=== PATIENT | female | born 1955 | race Caucasian/White ===

== ENCOUNTER → 2016-08-06 | Outpatient (CLI) | payer OTHER ==
[~2016-08-06] MED LIST: ADVIN10/60 INH; ADVIN25/60 INH; ASCO1CHW PO; BUSP1TAB46 PO; CHOL2000 PO; CITA20TA9 PO; CITA40TA12 PO; CLON0.5T3 PO; CLR10 PO; FLUT0.15 NAE; IPRASOL4 INH; MIRT15TA2 PO; OXYC-106 PO; OXYC1TAB3 PO; PRLSR20 PO; PSEU120T21 PO; SPRIN/30 INH; TEMA7.5C13 PO; THIO1CAP PO; UMEC1INH INH; VNTHFA/IN INH
--- NOTE | 2016-08-07 05:32 | PAP/PSG TECHNICIAN REPORT ---
[facility] Acid Washer Operator Polysomnogram Report Study name: None Report date: 08/07/2016 Study date: 08/06/2016 Referring Physician: CECILIA DUMAS PA-C Name: MALLY QUINTERO Interpreting Physician: Jack Reagan M.D. Date of : 1955 Acid Washer Operator: Donovan Clemente RPSGT. Sex: Female Age: 61 StudyType: PSG Weight: 228 lbs 45 cm Height: 61 years, Height 5' 3" Neck Circum: BMI: 40.38 Medications: MIRTAZAPINE 15 MG, BUSPIRONE HCL 7.5 MG, PRILOSEC 20 MG, CELEXA 40 MG, PROAIR HFA 108 (90 BASE) Patient History PATIENT HAS HISTORY OF INSOMNIA, SNORING AND WITNESSED APNEAS. ALSO HAS HISTORY OF DEPRESSION AND DAYTIME FATIGUE. SHE IS HERE FOR A NPSG ONLY TO [place] FOR BECCA. ESS = 7 RM 7 Parameters Monitored NPSG: E1-M2, E2-M1, Fp1-M2, Fp2-M1, F3-M2, F4-M2, F4-M1, C3-M2, C4-M2, C4-M1, O1-M2, O2-M2, O2-M1, T3-M2, T4-M1, P3-M2, P4-M1, CHIN1, CHIN2, HR, EKG, Legs, PFLOW, SNOR, FLOW, CFLOW, Tidal Volume, THOR, ABDO, SpO2, PLTH, CPRESS, ETCO2 Wave, ETCO2, pH Sleep Architecture Sleep Stages Time at Lights Off 8:57:16 PM STAGES Time (min.) TST (%) Time at Lights On 5:23:46 AM Wake 144.0 -- Total Recording Time (TRT) 507.00 min. N1 32.5 9 Total Sleep Period (TSP) 419.0 min. N2 146.0 40 Total Sleep Time (TST) 362.5min. N3 116.0 32 Awake Time 144.0 min. REM 68.0 19 Wake after Sleep Onset 56.5 min. Sleep Efficiency (SE) 72 % Sleep Onset Latency (JONH) 87.5 min. Number of Stage 1 Shifts None Awakenings 35 Stage Changes 156 Number of REM periods 35 REM 68.0 19 REM Latency 82.5 min. NREM 294.5 81 Body Position Analysis Supine Right Left Side Prone Vertical Total Sleep Time (min.) 341.0 9.5 125.0 134.53 0.0 0.0 Total Sleep Time (%) 63% 3% 34% 37 0% N/A% Total Sleep Time REM (min.) 38.0 0.0 30.0 None 0.0 0.0 Total Sleep Time NREM (min.) 190.0 9.5 95.0 None 0.0 0.0 Intermittent Wake (min.) 113.0 6.6 24.4 None 0.0 0.0 Total Sleep Period (%) 62% None None None None None Arousals Myoclonus (PLM) * Events Count Index Events Count Index Spontaneous 23 4 Events Awake (PLMW) 103 42.9 Respiratory 82 13.9 Events Asleep w/ Arousal (PLMA) 3 0.5 PLM 3 0 Events Asleep w/o Arousal (PLMS) 115 19.0 Snoring 27 4 Total Asleep 118 19.5 Total 135 22 Total 221 26 Respiratory Analysis * CA OA MA CH H RERA Total Count 0 26 0 0 166 1 192 Index 0.0 4.3 0.0 0 27.5 0 31.9 Mean Duration 0.0 34.6 0.0 0.00 22.6 14.3 24.1 Longest Duration 0.0 53.5 0.0 0.00 0.0 14.3 59.8 Respiratory Event Summary Total Supine ~Supine Right Left Prone REM NREM Apneas Count 26 15 11 0 11 N/A 21 5 Index 4.3 4 5 0.0 5.3 N/A 19 1 Hypopneas (4% Desat) Count 166 96 70 11 59 N/A 33 133 Index 27.5 25.3 31 69.5 28.3 N/A 29.1 27.1 Apneas & All Hypopneas Count 192 111 81 11 70 N/A 54 138 Index 31.8 29 36 69 34 N/A 47.6 28.1 Respiratory Events (Dressage Instructor+All Hyp+RERA) Count 192 112 81 11 70 N/A 54 138 Index 31.9 29 36 69.5 33.6 N/A 47.6 28.3 Respiratory Related Arousal Count 82 112 41 1 40 N/A 39 45 Index 13.9 11 18 6 19 N/A 34 9 Snoring Analysis Supine Right Left Prone REM NREM Total Snore duration 100.5 min Snores count 2,975 48 679 N/A 364 3,338 3,702 Snore mean duration 1.6 Sec Snores index 783 303 326 N/A 321.2 680.1 612.7 TST with snoring (%) 27.7% Desaturation Event Summary: Minimum %SpO2 Event Count Mean/Min/Max Duration(sec.) Desaturation Index % Time In Bed > 90 120 28.7 / 6.0 / 81.7 136.4 10.7 86 - 90 173 29.9 / 0.2 / 90.0 40.4 52.2 81 - 85 12 38.5 / 5.3 / 71.2 5.2 28.3 76 - 80 2 46.7 / 35.5 / 57.9 6.5 3.8 71 - 75 0 N/A 0.0 2.7 66 - 70 1 4.3 / 4.3 / 4.3 8.5 1.4 61 - 65 1 4.3 / 4.3 / 4.3 23.8 0.5 56 - 60 0 N/A 0.0 0.2 51 - 55 0 N/A 0.0 0.1 < 50 0 N/A 0.0 0.0 Total REM NREM Awake <50% 0.0 min. 0.0 min. 0.0 min. 0.0 min. 51 - 60% 1.3 min. 0.8 min. 0.0 min. 0.4 min. 61 - 70% 9.6 min. 5.5 min. 1.5 min. 2.7 min. 71 - 80% 31.9 min. 20.7 min. 5.7 min. 5.5 min. 81 - 90% 395.8 min. 34.8 min. 270.6 min. 90.4 min. 91 - 100% 52.8 min. 6.3 min. 16.7 min. 29.9 min. Average 86 81 86 88 Minimum SpO2 50 50 60 55 Desaturation Event Index 28.2 52.9 30.2 13.3 # Desat. Events below 89% 231 58 146 27 Time(%) with Saturation below 89% 67.9 11.1 48.0 8.8 Time(min.) with Saturation below 89% 333.4 54.4 235.8 43.3 Time (mins) REM (mins) NREM (mins) % of TST SpO2 Below 90% 207 59 N148 88.3 SpO2 Below 88% 105 0 0 70 Heart Rate Analysis Min (bpm) Max (bpm) Average (bpm) Awake 51 104 84 NREM 56 100 75 REM 49 103 72 Overall 49 103 75 Supplemental O2 Values Minimum O2 level: None Value Start Time End Time Acid Washer Operator Comments Ms. Quintero slept in the right, left and supine positions. PAC's noted. Leg movements noted. No bruxism noted. Snoring was noted and scored as a 5 on a scale of 1 through 5. (0=no snoring, 5=snoring loud enough to be heard through a closed door or down the [address] way) Ms. Quintero awoke to use the restroom 3 times during the night. Ms. Quintero stated I slept as well as I do when I am in my own bed. The final report will be interpreted and signed by a sleep physician. The completed physician report will then be placed in the patient medical record. Therapy (cm H2O) 0 TIB (min.) 506.5 TST (min.) 362.5 Sleep Onset (min.) 87.5 REM Onset From Sleep (min.) 82.5 Sleep Efficiency % 72 Wakefulness (%) 28 Wakefulness (min.) 144.0 NREM 1 (%) 9 NREM 1 (min.) 32.5 NREM 2 (%) 40 NREM 2 (min.) 146.0 NREM 3 (%) 32 NREM 3 (min.) 116.0 REM (%) 19 REM (min.) 68.0 # Arousals 135 Arousal Index 22 # Snore 3,702 Snore Index 612.7 AHI 31.8 AHI Supine 29 AHI Non-Supine 36 NREM AHI 28.1 REM AHI 47.6 RDI 31.9 # Obstructive Apnea 26 # Central Apnea 0 # Mixed Apnea 0 # Hypopneas 166 RERAs 1 Total Respiratory Events 201 Time Below SpO2 89% (min.) 290.2 Mean NREM SpO2 (%) 86 Mean REM SpO2 (%) 81 Mean Sleep SpO2 (%) 85 Min NREM SpO2 (%) 60 Min REM SpO2 (%) 50 Position Supine (min.) 341.0 Position Non-supine (min.) 134.5 LM Index Sleep 19.5 LM Index NREM 16.5 LM Index REM 32.6 Mean Heart Rate (bpm) 75 Min Heart Rate (bpm) 49
--- NOTE | 2016-08-08 19:19 | POLYSOMNOGRAPH REPORT ---
CLINICAL DATA: A 61-year-old female with BMI of 40.4 referred by SUZI Nguyen with a history of insomnia, snoring and witnessed apnea; depression, and daytime fatigue. Her [place] Sleepiness score is 7/24. SLEEP ARCHITECTURE: Total sleep period was 419 minutes. Total sleep time was 362.5 minutes divided between 294.5 minutes of non-REM sleep and 68 minutes of REM sleep. Sleep onset latency was delayed at 87.5 minutes. REM latency was 82.5 minutes. Sleep efficiency was 70%. Wake after sleep onset was 56.5 minutes. Sleep consisted of stage N1 9%, N2 40%, N3% 32%, and REM 19%. AROUSAL DATA: 135 arousals were recorded for an index of 22 per hour. 82 were due to respiratory events. PERIODIC LIMB MOVEMENTS DATA: 108 limb movements during sleep were noted for an index of 19.5 with arousal index of 0.5 per hour. RESPIRATORY DATA: Severe sleep apnea was documented. The AHI was 31.8. There were 26 obstructive apneic episodes. The longest duration of apnea was 53.5 seconds. There were 166 hypopneic episodes. The mean duration of hypopnea was 22.6 seconds. OXIMETRY DATA: Nocturnal hypoxemia was seen. The oxygen savanah was 50% during REM. The mean saturation was 86%. ELECTROCARDIOGRAM: Heart ranged from 56-103 beats per minute. PACs were noted. WORD PROCESSOR'S COMMENTS: The patient slept in the right, left, and supine positions. Snoring was severe, rated 5 on a scale of 1-5. IMPRESSION: Severe sleep apnea/hypopnea with an apnea-hypopnea index of 31.8 with severe nocturnal hypoxemia with an oxygen savanah of 50% during REM sleep. RECOMMENDATIONS: The patient would benefit from a repeat sleep study with CPAP. [facility]
--- NOTE | 2016-08-11 10:12 | CODING QUERY MEDICAL NECESSITY ---
SUPPORTING DIAGNOSIS NEEDED A supporting diagnosis is required for the test/procedure performed on this patient in order for us to be reimbursed by the patient's insurance. Please provide a supporting diagnosis for the following test/procedure listed below next to the test name along with your signature. *If there is no additional diagnosis for this patient that would support the following test/procedure please document that below next to the test/procedure. Test(s)/Procedure(s) that require a supporting diagnosis: * SLEEP STUDY DIAGNOSIS: * DOS: 08/06/16 Provider Signature: Date: Thank you Leigh [facility] Information Management Once completed, please kindly fax back to [phone] For questions please call [phone]
== END | disposition home or self-care (01) ==
LOC: C.NEUR 20:00
PROVIDERS: ATTEND Physician Assistant
DX: R06.83 Snoring (principal); G47.00 Insomnia, unspecified; J44.9 Chronic obstructive pulmonary disease, unspecified; I10 Essential (primary) hypertension; E66.9 Obesity, unspecified

== ENCOUNTER → 2016-10-29 | Outpatient (CLI) | payer OTHER ==
--- NOTE | 2016-10-30 05:39 | PAP/PSG TECHNICIAN REPORT ---
[facility] Supervisor Propellant Charge Loading Polysomnogram Report Study name: None Report date: 10/30/2016 Study date: 10/29/2016 Referring Physician: CECILIA DUMAS PA-C Name: MALLY QUINTERO Interpreting Physician: Jack Reagan M.D. Date of : 1955 Supervisor Propellant Charge Loading: Donovan Clemente RPSGT. Sex: Female Age: 61 StudyType: PSG PAP Weight: 236 lbs Height: 61 years, Height 5' 3" BMI: 41.8 Medications: PREDNISONE 20 MG, AZITHROMYCIN 250 MG, ACETAMINOPHEN 500 MG, MIRTAZAPINE 15 MG, BUSPIRONE HCL 7.5 MG, PRILOSEC 20 MG, CELEXA 40 MG, ADVAIR DISKUS, PROAIR HFA 108 90 BASE Patient History PATIENT HAD A SLEEP STUDY DONE IN AUGUST OF 2016. SHE WAS POSITIVE FOR BECCA WITH AN AHI OF 31.8/HR. SHE IS HERE TODAY FOR A CPAP TITRATION. RM 7 Parameters Monitored NPSG: E1-M2, E2-M1, Fp1-M2, Fp2-M1, F3-M2, F4-M2, F4-M1, C3-M2, C4-M2, C4-M1, O1-M2, O2-M2, O2-M1, T3-M2, T4-M1, P3-M2, P4-M1, CHIN1, CHIN2, HR, EKG, Legs, PFLOW, SNOR, FLOW, CFLOW, Tidal Volume, THOR, ABDO, SpO2, PLTH, CPRESS, ETCO2 Wave, ETCO2, pH Sleep Architecture Sleep Stages Time at Lights Off 9:18:29 PM STAGES Time (min.) TST (%) Time at Lights On 5:27:59 AM Wake 35.0 -- Total Recording Time (TRT) 490.00 min. N1 9.5 2 Total Sleep Period (TSP) 459.5 min. N2 198.5 44 Total Sleep Time (TST) 454.5min. N3 52.5 12 Awake Time 35.0 min. REM 194.0 43 Wake after Sleep Onset 5.0 min. Sleep Efficiency (SE) 93 % Sleep Onset Latency (JONH) 30.0 min. Number of Stage 1 Shifts None Awakenings 7 Stage Changes 48 Number of REM periods 6 REM 194.0 43 REM Latency 72.5 min. NREM 260.5 57 Body Position Analysis Supine Right Left Side Prone Vertical Total Sleep Time (min.) 451.1 0.0 32.6 32.57 0.0 0.0 Total Sleep Time (%) 93% 0% 7% 7 0% N/A% Total Sleep Time REM (min.) 194.0 0.0 0.0 None 0.0 0.0 Total Sleep Time NREM (min.) 227.9 0.0 32.6 None 0.0 0.0 Intermittent Wake (min.) 29.1 0.0 5.9 None 0.0 0.0 Total Sleep Period (%) 93% None None None None None Arousals Myoclonus (PLM) * Events Count Index Events Count Index Spontaneous 13 2 Events Awake (PLMW) 36 61.7 Respiratory 14 1.8 Events Asleep w/ Arousal (PLMA) 20 2.6 PLM 20 3 Events Asleep w/o Arousal (PLMS) 544 71.8 Snoring 4 1 Total Asleep 564 74.5 Total 51 7 Total 600 74 Respiratory Analysis * CA OA MA CH H RERA Total Count 3 24 0 0 29 0 56 Index 0.4 3.2 0.0 0 3.8 0 7.4 Mean Duration 13.4 13.0 0.0 0.00 13.8 0.0 13.4 Longest Duration 13.6 18.8 0.0 0.00 0.0 0.0 23.7 Respiratory Event Summary Total Supine ~Supine Right Left Prone REM NREM Apneas Count 27 4 23 N/A 23 N/A 4 23 Index 3.6 1 42 N/A 42.4 N/A 1 5 Hypopneas (4% Desat) Count 29 24 5 N/A 5 N/A 3 26 Index 3.8 3.4 9 N/A 9.2 N/A 0.9 6.0 Apneas & All Hypopneas Count 56 28 28 N/A 28 N/A 7 49 Index 7.4 4 52 N/A 52 N/A 2.2 11.3 Respiratory Events (Blade Filer+All Hyp+RERA) Count 56 28 28 N/A 28 N/A 7 49 Index 7.4 4 52 N/A 51.6 N/A 2.2 11.3 Respiratory Related Arousal Count 14 28 12 N/A 12 N/A 0 14 Index 1.8 0 22 N/A 22 N/A 0 3 Snoring Analysis Supine Right Left Prone REM NREM Total Snore duration 7.4 min Snores count 221 N/A 48 N/A 17 252 269 Snore mean duration 1.7 Sec Snores index 31 N/A 88 N/A 5.3 58.0 35.5 TST with snoring (%) 1.6% Desaturation Event Summary: Minimum %SpO2 Event Count Mean/Min/Max Duration(sec.) Desaturation Index % Time In Bed > 90 24 21.3 / 9.0 / 56.0 16.0 18.4 86 - 90 54 18.6 / 8.0 / 59.8 11.0 60.2 81 - 85 7 23.4 / 8.0 / 59.8 4.0 21.2 76 - 80 0 N/A 0.0 0.2 71 - 75 0 N/A 0.0 0.0 66 - 70 0 N/A 0.0 0.0 61 - 65 0 N/A 0.0 0.0 56 - 60 0 N/A 0.0 0.0 51 - 55 0 N/A 0.0 0.0 < 50 0 N/A 0.0 0.0 Total REM NREM Awake <50% 0.0 min. 0.0 min. 0.0 min. 0.0 min. 51 - 60% 0.0 min. 0.0 min. 0.0 min. 0.0 min. 61 - 70% 0.0 min. 0.0 min. 0.0 min. 0.0 min. 71 - 80% 0.9 min. 0.7 min. 0.1 min. 0.0 min. 81 - 90% 397.9 min. 146.0 min. 219.0 min. 32.8 min. 91 - 100% 90.0 min. 47.2 min. 41.3 min. 1.5 min. Average 88 88 88 88 Minimum SpO2 77 77 78 82 Desaturation Event Index 7.4 2.2 10.8 10.3 # Desat. Events below 89% 58 7 45 6 Time(%) with Saturation below 89% 51.4 21.3 25.4 4.6 Time(min.) with Saturation below 89% 251.0 104.2 124.4 22.4 Time (mins) REM (mins) NREM (mins) % of TST SpO2 Below 90% 54 7 N47 64.0 SpO2 Below 88% 16 0 0 41 Heart Rate Analysis Min (bpm) Max (bpm) Average (bpm) Awake 67 93 81 NREM 58 90 72 REM 55 84 70 Overall 55 90 71 Supplemental O2 Values Minimum O2 level: None Value Start Time End Time Supervisor Propellant Charge Loading Comments Ms. Quintero slept in the left and supine positions. No cardiac arrhythmia noted. Leg movements noted. No bruxism noted. CPAP was initiated at +4 CMH2O and up-titrated to an optimal level of +11 CMH2O, which nearly eliminated all respiratory events and snoring. A Dias and [employer] size small Eson nasal mask was used during titration Ms. Quintero awoke to use the restroom 1 time during the night. Ms. Quintero stated I slept as well as I do when I am in my own bed. Around 1:09 am 1l/min of supplemental oxygen was added and was increased to 4l/min. 4l/min was added around 3:43 am. The final report will be interpreted and signed by a sleep physician. The completed physician report will then be placed in the patient medical record. Therapy Event: Therapy (cm H20) 4 6 7 8 9 10 11 Total Time at Pressure (min.) 46.9 7.2 11.0 25.8 12.8 174.1 211.9 TST at Pressure (min.) 16.9 7.2 10.0 25.3 12.8 173.1 209.4 # Periods 1 1 1 1 1 1 1 Sleep Onset (min.) 30.0 0.0 0.0 0.0 0.0 0.0 0.0 REM Onset (min.) N/A N/A N/A N/A 11.7 0.0 8.4 Sleep Efficiency % 36 100 90 98 100 99 98 Wakefulness (%) 64.0 0.0 9.1 1.9 0.0 0.6 1.2 Wakefulness (min.) 30.0 0.0 1.0 0.5 0.0 1.0 2.5 NREM 1 (%) 3.2 0.0 4.5 1.9 0.0 0.6 2.8 NREM 1 (min.) 1.5 0.0 0.5 0.5 0.0 1.0 6.0 NREM 2 (%) 32.8 100.0 86.4 96.1 91.8 23.3 42.2 NREM 2 (min.) 15.4 7.2 9.5 24.8 11.7 40.6 89.4 NREM 3 (%) 0.0 0.0 0.0 0.0 0.0 24.1 5.0 NREM 3 (min.) 0.0 0.0 0.0 0.0 0.0 42.0 10.5 REM (%) 0.0 0.0 0.0 0.0 8.2 51.4 48.8 REM (min.) 0.0 0.0 0.0 0.0 1.0 89.5 103.5 # Arousals 17 0 2 4 1 13 14 Arousal Index 60.5 0.0 12.0 9.5 4.7 4.5 4.0 # Snore 22 26 3 67 3 61 87 Snore Index 78.3 218.1 18.0 159.1 14.1 21.1 24.9 AHI 88.9 25.2 6.0 23.8 14.1 4.2 0.6 AHI Supine N/A N/A 41.3 23.8 14.1 4.2 0.6 AHI Non-Supine 88.9 25.2 0.0 N/A N/A N/A N/A NREM AHI 88.9 25.2 6.0 23.8 10.2 5.0 0.6 REM AHI N/A N/A N/A N/A 57.3 3.4 0.6 RDI 88.9 25.2 6.0 23.8 14.1 4.2 0.6 # Obstructive 20 3 0 0 0 0 1 # Central Ap 0 0 0 0 0 3 0 # Mixed 0 0 0 0 0 0 0 # Hypopneas 5 0 1 10 3 9 1 RERAS 0 0 0 0 0 0 0 Total Respiratory Events 25 3 1 10 3 12 2 Time Below SpO2 89.00% (min.) 10.5 5.6 8.4 23.3 12.5 150.5 17.8 Mean NREM SpO2 (%) 88 88 87 86 85 87 90 Mean REM SpO2 (%) N/A N/A N/A N/A 83 85 90 Mean Sleep SpO2 (%) 88 88 87 86 85 86 90 Min NREM SpO2 (%) 82 84 86 82 83 78 86 Min REM SpO2 (%) N/A N/A N/A N/A 81 77 86 Position Supine (min.) 0.0 0.0 1.5 25.3 12.8 173.1 209.4 Position Non-supine (min.) 16.9 7.2 8.6 0.0 0.0 0.0 0.0 LM Index Sleep 181.4 100.7 107.9 137.8 131.7 76.6 50.4 LM Index NREM 181.4 100.7 107.9 137.8 143.4 131.3 83.3 LM Index REM N/A N/A N/A N/A 0.0 25.5 16.8 Mean Heart Rate (bpm) 77 78 79 77 76 74 67 Min Heart Rate (bpm) 71 71 75 72 70 63 55
--- NOTE | 2016-11-10 10:25 | Sleep Study ---
Sleep Study Report Date of Service: October 29, 2016 Sleep Study Report Clinical data: 61-year-old female with a BMI of 41.8 referred for a CPAP titration study. The patient had a sleep study performed on August 06 2016 which showed severe sleep apnea with an AHI of 31.8. Her [place] sleepiness score was 7/24. Sleep architecture: Total sleep time was 454.5 minutes divided between 260.5 minutes of non-REM sleep and 194 minutes of REM sleep. Sleep onset latency was 30 minutes. REM latency was 72.5 minutes. Sleep efficiency was 93 percent. Wake after sleep onset was 5 minutes. Sleep consisted of stage N1 2 percent, N2 44 percent, N3 12 percent, and REM 43 percent. Arousal data: 51 arousals recorded for an index of 7 per hour. PLM data: 564 limb movements during sleep were noted for an index of 74.5 per hour with an arousal index of 2.6 per hour Respiratory data: The AHI was 7.4. There were 3 central and 24 obstructive apneic episodes. The longest apneic episode was 18.8 seconds. There were 29 hypopneas episodes. The mean duration of hypopnea was 13.8 seconds. Oximetry data: Nocturnal hypoxemia seen. Oxygen savanah was 77 percent during REM sleep. Mean saturation was 88 percent. EKG: Heart rates ranged from 58 to 90 beats per minute. No arrhythmias were noted. Forensic Manager's comments and treatment summary: The patient slept in the left and supine positions. A Dias and [employer] small Eson nasal mask was used during titration. The patient was titrated up to her final pressure setting of 11 centimeters water pressure. At that level, she slept for 209.4 minutes with an AHI of 0.6. However, she continued to have hypoxemia. At 1:09 a.m., oxygen 1 liter/minute was started. It was eventually titrated up to 4 liters/minute with resolution of hypoxemia. Impression: Severe obstructive sleep apnea/hypopnea and nocturnal hypoxemia corrected with CPAP 11 centimeters water pressure with oxygen 4 liters/minute. Recommendations: The patient should be started on the above-noted treatment regimen and seen back in follow-up within 90 days to document efficacy and compliance. Copies To 1: Kelsea Akins PA-C
== END | disposition home or self-care (01) ==
LOC: C.NEUR 20:00
PROVIDERS: ATTEND Physician Assistant
DX: G47.33 Obstructive sleep apnea (adult) (pediatric) (principal)

== ENCOUNTER 2016-11-15 16:15 | Emergency (ER) | payer OTHER ==
[~2016-11-15] VITALS: Ht 160 cm; Wt 117.8 kg
[~2016-11-15 16:15] MED LIST changes: -OXYC1TAB3 PO
[2016-11-15 16:24] VITALS: TEMP 37.1; Ht 160 cm; Wt 117.8 kg
--- NOTE | 2016-11-15 17:08 | DIAGNOSTIC IMAGING REPORT ---
CHEST ONE VIEW PORTABLE CLINICAL HISTORY: GI bleed COMPARISON STUDY: No previous studies for comparison. FINDINGS: The cardiac and mediastinal contours are normal. There is no evidence of focal pulmonary consolidation. There is no evidence of failure. No pleural effusions are visualized.[ There is a right shoulder arthroplasty. There is no free intraperitoneal air. IMPRESSION: No active disease in the chest. Electronically signed by: Kenroy Vasquez M.D. 11/15/2016 5:07 PM Dictated Date/Time: 11/15/2016 5:07 PM
--- NOTE | 2016-11-15 17:12 | EMERGENCY ROOM VISIT NOTE ---
History Report prepared by Edinson: Tra Sterling Under the Supervision of: Dr. Gómez Herrera M.D. First contact with patient: 16:34 Chief Complaint: RECTAL BLEEDING Stated Complaint: RECTAL BLEEDING, CLOTS & MUCUS,EXTREMITY SWELLING History of Present Illness The patient is a 61 year old female who presents to the Emergency Room with complaints of worsening rectal bleeding starting about a month ago. As per daughter, the patient initially had blood with stool. About a week and a half ago, she started passing only blood without any stools. She had a bloody bowel movement today. She was evaluated by her PCP a few weeks ago. She had a rectal exam which did not show any hemorrhoids. She reports a normal appetite and a normal fluid intake. She has intermittent vomiting which has an oily quality but denies any blood in the vomit. She is supposed to have a colonoscopy after an echocardiogram. She denies any history of similar symptoms. She also complains of some lightheadedness. The patient started having bilateral lower extremity swelling about a month ago. She was placed on Lasix 1 pill a day for 10 days without relief. As per daughter, she has gained weight recently but it could be a side effect of one of her prescribed medications. She is a current smoker. She denies any new abdominal pain, urinary symptoms, weakness, or any other complaints. Source of History: patient Onset: about a month ago Position: other (global) Quality: other (rectal bleeding) Timing: worsening Associated Symptoms: No abdominal pain (new), No urinary symptoms, No weakness Review of Systems See HPI for pertinent positives & negatives. A total of 10 systems reviewed and were otherwise negative. 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 Family History Cancer Gallbladder disease Heart disease Hypertension Kidney disease Kidney stones Social History Smoking Status: Current Every Day Smoker Alcohol Use: none Marital Status: single Housing Status: lives with family Occupation Status: disabled Current/Historical Medications Scheduled Ascorbic Acid (Vitamin C Plus [place] 500 mg), 1,000 MG PO HS Buspirone Hcl (Buspirone Hcl), 1 TAB PO BID Citalopram Hydrobromide (Celexa), 20 MG PO QAM Fluticasone Prop/Salmeterol (Advair Diskus 100/50 60 Dose), 1 PUFF INH BID Fluticasone Propionate (Nasal) (Flonase Allergy Relief), 2 SPRAYS BE QAM Loratadine (Claritin), 10 MG PO QAM Mirtazapine Soltab (Remeron Soltab), 0.5 TAB PO HS Omeprazole (Prilosec), 20 MG PO QAM Umeclidinium [place] (Incruse Ellipta), 1 PUFF INH AFTERNOON Scheduled PRN Albuterol Hfa (Ventolin Hfa), 2-4 PUFFS INH Q6H PRN for SOB/Wheezing Allergies Coded Allergies: Adhesives (Verified Allergy, Unknown, MCKENNA AND "EATS" SKIN, 11/15/16) Trazodone (Unverified Adverse Reaction, Severe, EXCESSIVE URINATION, ) Physical Exam Vital Signs Date Time Temp Pulse Resp B/P (MAP) Pulse Ox O2 Delivery O2 Flow Rate FiO2 11/15/16 20:05 81 20 130/77 95 Room Air 11/15/16 19:25 78 20 128/73 96 Room Air 11/15/16 19:10 81 11/15/16 18:39 76 20 159/79 98 Room Air 11/15/16 16:24 37.1 88 22 149/83 97 Room Air Physical Exam GENERAL: Patient is in no acute distress. HEENT: No acute trauma, normocephalic atraumatic, mucous membranes moist, no nasal congestion, no scleral icterus. NECK: No stridor, no adenopathy, no meningismus, trachea is midline. LUNGS: Clear to auscultation bilaterally, no wheeze, no rhonchi, breath sounds equal. HEART: Without murmurs gallops or rubs, regular rate and rhythm. ABDOMEN: Soft, nontender, bowel sounds positive, no hernias, no peritonitis. EXTREMITIES: No cyanosis, full range of motion of all the joints without pain or difficulty, no signs for acute trauma. Moderate bilateral pedal edema without cellulitis. RECTAL: No hemorrhoids or obvious gross blood. Heme test positive. NEUROLOGIC: Oriented x 3, no acute motor or sensory deficits, no focal weakness. SKIN: No rash, no jaundice, no diaphoresis. Medical Decision & Procedures ER Provider Diagnostic Interpretation: X-ray results as stated below per interpretation by me and the radiologist: CHEST ONE VIEW PORTABLE CLINICAL HISTORY: GI bleed COMPARISON STUDY: No previous studies for comparison. FINDINGS: The cardiac and mediastinal contours are normal. There is no evidence of focal pulmonary consolidation. There is no evidence of failure. No pleural effusions are visualized.[ There is a right shoulder arthroplasty. There is no free intraperitoneal air. IMPRESSION: No active disease in the chest. Electronically signed by: Kenroy Vasquez M.D. 11/15/2016 5:07 PM Dictated Date/Time: 11/15/2016 5:[address] and US results as stated below per my review and radiologist interpretation: CT ABD/PELVIS IV AND ORAL CONT CLINICAL HISTORY: Rectal bleeding. Leg swelling. Possible mass. COMPARISON STUDY: None. TECHNIQUE: Following the IV administration of 93 mL of Optiray-320, CT scan of the abdomen and pelvis was performed from the lung bases to the proximal femurs. Images are reviewed in the axial, sagittal, and coronal planes. IV contrast was administered without complication. CT DOSE: 1424.73 mGy.cm FINDINGS: Lower chest: Is calcified left lower lobe granuloma. Liver: There is severe hepatic steatosis. There are approximately 10 hypodense hepatic lesions, the largest of which is located within the left lobe measuring 2 cm. Ultrasound is recommended in follow-up to differentiate solid masses from hepatic cysts. Gallbladder: Unremarkable. Spleen: Normal in size and attenuation. Pancreas: Unremarkable. Adrenal glands: Unremarkable. Kidneys: There is symmetric renal cortical enhancement. The kidneys are normal in size without hydronephrosis. Bowel: There are no transition zones indicate bowel obstruction. The appendix appears normal. There is no acute diverticulitis. Peritoneum: There is no intraperitoneal free air or abdominal ascites. Vasculature: The abdominal aorta is normal in course and caliber. Adenopathy: None. Pelvic viscera: The uterus appears surgically absent Skeletal structures: No destructive osseous lesions are seen. IMPRESSION: 1. No evidence of bowel obstruction. No evidence of free air 2. Normal appendix. No evidence of acute diverticulitis 3. No evidence of pathologic adenopathy 4. Hepatic steatosis 5. Multiple hypodense hepatic lesions. Ultrasound is recommended in follow-up to differentiate low density solid masses from hepatic cysts Electronically signed by: Kenroy Vasquez M.D. 11/15/2016 8:01 PM Dictated Date/Time: 11/15/2016 7:54 PM ULTRASOUND VENOUS DOPPLER LWR EXT TIFFANI CLINICAL HISTORY: Lower extremity edema COMPARISON STUDY: 04/16/2016 FINDINGS: Real-time and color flow Doppler imaging were performed. Flow was seen within the femoral, popliteal and calf veins with no intraluminal thrombus demonstrated. The saphenous vein is patent. IMPRESSION: No evidence of lower extremity DVT. Electronically signed by: Kenroy Vasquez M.D. 11/15/2016 6:05 PM Dictated Date/Time: 11/15/2016 6:04 PM Laboratory Results 11/15/16 17:12 Red Blood Count 4.27, Mean Corpuscular Volume 89.7, Mean Corpuscular Hemoglobin 29.7, Mean Corpuscular Hemoglobin Concent 33.2, Mean Platelet Volume 9.6, Neutrophils (%) (Auto) 57.3, Lymphocytes (%) (Auto) 28.8, Monocytes (%) (Auto) 8.7, Eosinophils (%) (Auto) 4.2, Basophils (%) (Auto) 0.6, Neutrophils # (Auto) 3.94, Lymphocytes # (Auto) 1.98, Monocytes # (Auto) 0.60, Eosinophils # (Auto) 0.29, Basophils # (Auto) 0.04 11/15/16 17:12 Test 11/15/16 17:12 11/15/16 17:30 White Blood Count 6.88 K/uL (4.8-10.8) Red Blood Count 4.27 M/uL (4.2-5.4) Hemoglobin 12.7 g/dL (12.0-16.0) Hematocrit 38.3 % (37-47) Mean Corpuscular Volume 89.7 fL (80-100) Mean Corpuscular Hemoglobin 29.7 pg (25-34) Mean Corpuscular Hemoglobin Concent 33.2 g/dl (32-36) Platelet Count 281 K/uL (130-400) Mean Platelet Volume 9.6 fL (7.4-10.4) Neutrophils (%) (Auto) 57.3 % Lymphocytes (%) (Auto) 28.8 % Monocytes (%) (Auto) 8.7 % Eosinophils (%) (Auto) 4.2 % Basophils (%) (Auto) 0.6 % Neutrophils # (Auto) 3.94 K/uL (1.4-6.5) Lymphocytes # (Auto) 1.98 K/uL (1.2-3.4) Monocytes # (Auto) 0.60 K/uL (0.11-0.59) Eosinophils # (Auto) 0.29 K/uL (0-0.5) Basophils # (Auto) 0.04 K/uL (0-0.2) RDW Standard Deviation 49.0 fL (36.4-46.3) RDW Coefficient of Variation 15.1 % (11.5-14.5) Immature Granulocyte % (Auto) 0.4 % Immature Granulocyte # (Auto) 0.03 K/uL (0.00-0.02) Prothrombin Time 9.7 SECONDS (9.0-12.0) Prothromb Time International Ratio 0.9 (0.9-1.1) Activated Partial Thromboplast Time 24.0 SECONDS (21.0-31.0) Partial Thromboplastin Ratio 0.9 Anion Gap 7.0 mmol/L (3-11) Est Creatinine Clear Calc Drug Dose 65.8 ml/min Estimated GFR () 62.3 Estimated GFR (Non- 53.8 BUN/Creatinine Ratio 14.1 (10-20) Calcium Level 8.7 mg/dl (8.5-10.1) Total Bilirubin 0.2 mg/dl (0.2-1) Direct Bilirubin < 0.1 mg/dl (0-0.2) Aspartate Amino Transf (AST/SGOT) 46 U/L (15-37) Alanine Aminotransferase (ALT/SGPT) 86 U/L (12-78) Alkaline Phosphatase 85 U/L (45-117) Total Creatine Kinase 133 U/L (26-192) Troponin I < 0.015 ng/ml (0-0.045) Pro-B-Type Natriuretic Peptide 124 pg/ml (0-900) Total Protein 6.8 gm/dl (6.4-8.2) Albumin 3.2 gm/dl (3.4-5.0) Urine Color YELLOW Urine Appearance CLOUDY (CLEAR) Urine pH 5.0 (4.5-7.5) Urine Specific [place] 1.014 (1.000-1.030) Urine Protein NEG (NEG) Urine Glucose (UA) NEG (NEG) Urine Ketones NEG (NEG) Urine Occult Blood NEG (NEG) Urine Nitrite NEG (NEG) Urine Bilirubin NEG (NEG) Urine Urobilinogen NEG (NEG) Urine Leukocyte Esterase NEG (NEG) Urine WBC (Auto) 1-5 /hpf (0-5) Urine RBC (Auto) 0-4 /hpf (0-4) Urine Hyaline Casts (Auto) 1-5 /lpf (0-5) Urine Epithelial Cells (Auto) >30 /lpf (0-5) Urine Bacteria (Auto) 1+ (NEG) Laboratory results reviewed by me. ECG Indication: other (Rectal bleeding) Rate (beats per minute): 75 Rhythm: normal sinus Findings: no acute ischemic change, no ectopy ED Course 1634: The patient was evaluated in room B05. A complete history and physical exam was performed. 2005: Reevaluated the patient. Discussed results and discharge instructions: She verbalized understanding and agreement. The patient is ready for discharge. Medical Decision Medication Reconciliation: I attest that I have personally reviewed the patient' s current medication list. Blood Pressure Screening: Patient was found to have an elevated blood pressure and was referred to their primary doctor for recheck and further treatment. Differential diagnosis includes but is not limited to upper or lower GI bleeding , rectal or colonic mass, anemia, DVT, electrolyte imbalance, renal failure, CHF. There is no leukocytosis or concerning anemia. No significant electrolyte abnormality, kidney failure. The patient does have some very subtle LFT elevations, she states that she has been talked to about these subtle elevations in the past. There is no coagulopathy. Bilateral lower extremity ultrasound does not show any evidence for DVT. Clinically, there was no lower extremity cellulitis. EKG shows a sinus rhythm, no acute ischemia. Cardiac enzyme testing 1 is not consistent with acute cardiac injury. Chest x-ray does not show CHF or pneumonia. BNP is not elevated making CHF less likely. Abdominal and pelvis CT does not show any evidence for diverticulitis or colitis. No evidence for mass. Possible liver cysts were seen for which follow -up was recommended. Urinalysis does not show infection. By my exam, the rectal exam was heme positive. The patient presents with a month of bloody stool. She has had some leg swelling as well. She was sent here for the possibility of CHF or fluid overload. She does not appear to be in heart failure. I find nothing critical or emergent. I do think she can be discharged to have the colonoscopy as scheduled. She was encouraged to try to keep her legs elevated and to avoid salt in the diet. She was encouraged to return here for worsening symptoms. The source of the rectal bleeding will hopefully be found by colonoscopy. Impression Primary Impression: Rectal bleeding Additional Impression: Pedal edema Scribe Attestation The scribe's documentation has been prepared under my direction and personally reviewed by me in its entirety. I confirm that the note above accurately reflects all work, treatment, procedures, and medical decision making performed by me. Departure Information Dispostion Home / Self-Care Referrals Kelsea Akins PA-C (PCP) Forms HOME CARE DOCUMENTATION FORM, IMPORTANT VISIT INFORMATION, WORK / SCHOOL INSTRUCTIONS Patient Instructions My [facility] [employer] Additional Instructions try to keep the legs elevated no extra salt walking can help the swelling talk with your doctor about todays testing--you need a colonoscopy return for worsening symptoms Problem Qualifiers
[2016-11-15 17:35] LABS: BASO % 0.6 %; BASO ABS # 0.04 K/uL (0-0.2); COMPLETE YES; EOS % 4.2 %; HEMATOCRIT 38.3 % (37-47); IG% 0.4 %; LYMPH % 28.8 %; LYMPH ABS # 1.98 K/uL (1.2-3.4); MEAN CELL VOLUME 89.7 fL (80-100); MEAN CORPUSCULAR HEMOGLOBIN 29.7 pg (25-34); MEAN CORPUSCULAR HGB CONC 33.2 g/dl (32-36); MEAN PLATELET VOLUME 9.6 fL (7.4-10.4); MONO % 8.7 %; NEUT % 57.3 %; PLATELET COUNT 281 K/uL (130-400); RED BLOOD COUNT 4.27 M/uL (4.2-5.4); WHITE BLOOD COUNT 6.88 K/uL (4.8-10.8)
[2016-11-15 17:46] LABS: INR 0.9 (0.9-1.1); PARTIAL THROMBOPLASTIN RATIO 0.9; PROTHROMBIN TIME (PATIENT) 9.7 SECONDS (9.0-12.0)
[2016-11-15 17:59] LABS: ALT/SGPT 86 U/L (12-78); AST/SGOT 46 U/L (15-37); BLOOD UREA NITROGEN 16 mg/dl (7-18); BUN/CREATININE RATIO 14.1 (10-20); CALCIUM 8.7 mg/dl (8.5-10.1); CARBON DIOXIDE 28 mmol/L (21-32); CHLORIDE 104 mmol/L (98-107); GLUCOSE 101 mg/dl (70-99); POTASSIUM 3.9 mmol/L (3.5-5.1); SODIUM 139 mmol/L (136-145)
[2016-11-15 18:01] LABS: URINE APPEARANCE CLOUDY (CLEAR); URINE BILIRUBIN NEG (NEG); URINE COLOR YELLOW; URINE EPITHELIAL CELL AUTO >30 /lpf (0-5); URINE NITRITE NEG (NEG); URINE SPECIFIC GRAVITY 1.014 (1.000-1.030); UROBILINOGEN NEG (NEG); ZZUR CULT IF INDIC CLEAN CATCH YES
[2016-11-15 18:04] LABS: ALKALINE PHOSPHATASE 85 U/L (45-117)
[2016-11-15 18:06] LABS: MANUAL MICROSCOPIC REQUIRED? NO; REVIEW REQ? NO
--- NOTE | 2016-11-15 18:06 | DIAGNOSTIC IMAGING REPORT ---
ULTRASOUND VENOUS DOPPLER LWR EXT BILA CLINICAL HISTORY: Lower extremity edema COMPARISON STUDY: 04/16/2016 FINDINGS: Real-time and color flow Doppler imaging were performed. Flow was seen within the femoral, popliteal and calf veins with no intraluminal thrombus demonstrated. The saphenous vein is patent. IMPRESSION: No evidence of lower extremity DVT. Electronically signed by: Kenroy Vasquez M.D. 11/15/2016 6:05 PM Dictated Date/Time: 11/15/2016 6:04 PM
--- NOTE | 2016-11-15 20:02 | DIAGNOSTIC IMAGING REPORT ---
CT ABD/PELVIS IV AND ORAL CONT CLINICAL HISTORY: Rectal bleeding. Leg swelling. Possible mass. COMPARISON STUDY: None. TECHNIQUE: Following the IV administration of 93 mL of Optiray-320, CT scan of the abdomen and pelvis was performed from the lung bases to the proximal femurs. Images are reviewed in the axial, sagittal, and coronal planes. IV contrast was administered without complication. CT DOSE: 1424.73 mGy.cm FINDINGS: Lower chest: Is calcified left lower lobe granuloma. Liver: There is severe hepatic steatosis. There are approximately 10 hypodense hepatic lesions, the largest of which is located within the left lobe measuring 2 cm. Ultrasound is recommended in follow-up to differentiate solid masses from hepatic cysts. Gallbladder: Unremarkable. Spleen: Normal in size and attenuation. Pancreas: Unremarkable. Adrenal glands: Unremarkable. Kidneys: There is symmetric renal cortical enhancement. The kidneys are normal in size without hydronephrosis. Bowel: There are no transition zones indicate bowel obstruction. The appendix appears normal. There is no acute diverticulitis. Peritoneum: There is no intraperitoneal free air or abdominal ascites. Vasculature: The abdominal aorta is normal in course and caliber. Adenopathy: None. Pelvic viscera: The uterus appears surgically absent Skeletal structures: No destructive osseous lesions are seen. IMPRESSION: 1. No evidence of bowel obstruction. No evidence of free air 2. Normal appendix. No evidence of acute diverticulitis 3. No evidence of pathologic adenopathy 4. Hepatic steatosis 5. Multiple hypodense hepatic lesions. Ultrasound is recommended in follow-up to differentiate low density solid masses from hepatic cysts Electronically signed by: Kenroy Vasquez M.D. 11/15/2016 8:01 PM Dictated Date/Time: 11/15/2016 7:54 PM
[2016-11-15 20:24] VITALS: BP 128/61; PULSE 80; O2SAT 96
== END 2016-11-15 20:35 | disposition home or self-care (01) ==
LOC: C.EDB 16:16
DX: K62.5 Hemorrhage of anus and rectum (principal); R60.0 Localized edema; F17.200 Nicotine dependence, unspecified, uncomplicated; J45.909 Unspecified asthma, uncomplicated; J43.9 Emphysema, unspecified; Z90.710 Acquired absence of both cervix and uterus; Z96.611 Presence of right artificial shoulder joint; Z82.49 Family history of ischemic heart disease and other diseases of the circulatory system; Z84.1 Family history of disorders of kidney and ureter

== ENCOUNTER → 2016-11-18 | Outpatient (CLI) | payer OTHER ==
[~2016-11-18] MED LIST changes: -ADVIN25/60 INH; -CHOL2000 PO; -CITA40TA12 PO; -CLON0.5T3 PO; -IPRASOL4 INH; -OXYC-106 PO; +OXYC1TAB3 PO; -PSEU120T21 PO; -SPRIN/30 INH; -TEMA7.5C13 PO; -THIO1CAP PO
--- NOTE | 2016-11-18 17:51 | ECHOCARDIOGRAM REPORT ---
*NOTICE TO RECEIVING LIBERTARIAN AGENCY This information is strictly Confidential and protected under [place] law. [place] law prohibits you from making any further disclosure of this information unless further disclosure is expressly permitted by the written consent of the person to whom it pertains or is authorized by law. A general authorization for the release of medical or other information is not sufficient for this purpose. Hospital accepts no responsibility if the information is made available to any other person, INCLUDING THE PATIENT. Interpretation Summary * Name: MALLY QUINTERO Study Date: 11/18/2016 01:46 PM BP: 114/60 mmHg * Patient Location: [facility] HR: 77 * : 1955 (M/d/yyyy) Gender: Female Height: 63 in * Age: 61 yrs Ethnicity: CA Weight: 250 lb * Ordering Physician: Kelsea Akins * Referring Physician: Kelsea Akins PA-C * Performed By: Sandy Norris RDCS * * Reason For Study: EDEMA * BSA: 2.1 m2 * -- Conclusions -- * 1. Normal LV size. Normal LV wall thickness. * 2. Normal LV systolic function. LVEF 60-65%. No regional wall motion abnormalities. * 3. Grossly normal RV size and function. * 4. No significant valvular pathology. * 5. Normal estimated RA pressure. * 6. Trivial pericardial effusion. * 7. No prior studies for comparison. Procedure Details * A complete two-dimensional transthoracic echocardiogram was performed (2D, M-mode, Doppler and color flow Doppler). Left Ventricle * The left ventricle is grossly normal size. * There is normal left ventricular wall thickness. * Ejection Fraction = 60-65%. * No regional wall motion abnormalities noted. Right Ventricle * The right ventricle is not well visualized. * The right ventricle is grossly normal size. * There is mild right ventricular hypertrophy. * The right ventricular systolic function is normal as assessed by tricuspid annular plane systolic excursion (TAPSE) (normal >1.5 cm). Atria * The left atrial size is normal. * Right atrium not well visualized. * Right atrial size is normal. * No ASD detected; PFO is not assessed. Mitral Valve * The mitral valve is grossly normal. * There is no mitral valve stenosis. * There is trace mitral regurgitation. Tricuspid Valve * The tricuspid valve is not well visualized, but is grossly normal. * There is no tricuspid stenosis. * Significant tricuspid regurgitation is absent. Aortic Valve * The aortic valve opens well. * The aortic valve is trileaflet. * No hemodynamically significant valvular aortic stenosis. * There is no significant aortic regurgitation. Pulmonic Valve * The pulmonary valve is inadequately visualized, but the Doppler data is adequate for interpretation. * There is no pulmonic valvular stenosis. * There is no significant pulmonary regurgitation. Great Vessels * The aortic root and proximal ascending aorta are normal sized. Pericardium/Pleural * Trivial pericardial effusion Great Vessels * Normal inferior vena cava size and collapsability with sniff indicates a normal right atrial pressure of 3 mmHg MMode 2D Measurements and Calculations IVSd 1.3 cm IVSs 1.9 cm LVIDd 4.1 cm LVIDs 3.0 cm LVPWd 1.4 cm LVPWs 1.7 cm IVS/LVPW 0.92 FS 25.7 % EDV(Teich) 73.3 ml ESV(Teich) 35.9 ml EF(Teich) 51.0 % EDV(cubed) 67.8 ml ESV(cubed) 27.9 ml EF(cubed) 58.9 % % IVS thick 45.2 % % LVPW thick 19.5 % LV mass(C)d 205.2 grams LV mass(C)dI 96.5 grams/m\S\2 LV mass(C)s 218.0 grams LV mass(C)sI 102.5 grams/m\S\2 SV(Teich) 37.4 ml SI(Teich) 17.6 ml/m\S\2 SV(cubed) 39.9 ml SI(cubed) 18.8 ml/m\S\2 Ao root diam 3.2 cm Ao root area 8.2 cm\S\2 LA dimension 3.2 cm LA/Ao 0.98 LVAd ap4 25.5 cm\S\2 LVLd ap4 8.0 cm EDV(MOD-sp4) 65.6 ml EDV(sp4-el) 68.8 ml LVAs ap4 14.1 cm\S\2 LVLs ap4 6.2 cm ESV(MOD-sp4) 26.4 ml ESV(sp4-el) 27.2 ml EF(MOD-sp4) 59.7 % EF(sp4-el) 60.4 % LVAd ap2 23.5 cm\S\2 LVLd ap2 7.7 cm EDV(MOD-sp2) 61.7 ml EDV(sp2-el) 60.6 ml LVAs ap2 12.3 cm\S\2 LVLs ap2 5.6 cm ESV(MOD-sp2) 23.9 ml ESV(sp2-el) 22.8 ml EF(MOD-sp2) 61.4 % EF(sp2-el) 62.4 % LVLd %diff -4.17 % EDV(MOD-bp) 64.0 ml LVLs %diff -10.22 % ESV(MOD-bp) 25.6 ml EF(MOD-bp) 60.0 % SV(MOD-sp4) 39.1 ml SI(MOD-sp4) 18.4 ml/m\S\2 SV(MOD-sp2) 37.9 ml SI(MOD-sp2) 17.8 ml/m\S\2 SV(MOD-bp) 38.4 ml SI(MOD-bp) 18.1 ml/m\S\2 SV(sp4-el) 41.6 ml SI(sp4-el) 19.6 ml/m\S\2 SV(sp2-el) 37.8 ml SI(sp2-el) 17.8 ml/m\S\2 Doppler Measurements and Calculations MV E max gabriela 98.0 cm/sec MV A max gabriela 86.8 cm/sec MV E/A 1.1 MV dec time 0.22 sec Ao V2 max 138.5 cm/sec Ao max PG 7.7 mmHg Ao max PG (full) -0.18 mmHg LV V1 max PG 7.8 mmHg LV V1 max 140.0 cm/sec
== END | disposition home or self-care (01) ==
LOC: C.CPL 13:30
PROVIDERS: ATTEND Physician Assistant
DX: R60.9 Edema, unspecified (principal)

== ENCOUNTER → 2016-11-30 | Day surgery (SDC) | payer OTHER ==
[2016-11-29 10:22] VITALS: Ht 160 cm; Wt 113.6 kg
[~2016-11-30] VITALS: Ht 160 cm; Wt 113.6 kg
[~2016-11-30] MED LIST changes: +LIDOCAINE HCL 2% 2 ML VIAL (20MG/ML) ONE; +PROPOFOL IV EMULSION 10 MG/ML 20 ML VIAL IV ONE; +SODIUM CHLORIDE 0.9% 500ML 500 ML IV ONE
--- NOTE | 2016-11-30 13:13 | Endo History and Physical ---
History & Physical Date of Service: Nov 30, 2016. Chief Complaint: Rectal bleeding Referring Physician: Tashi History of Present Illness rectal bleeding Past Surgical History Hx Cardiac Surgery: No Hx Internal Defibrillator: No Hx Pacemaker: No Hx Abdominal Surgery: Yes (PARTIAL HYSTER) Hx of Implantable Prosthesis: No Hx Post-Op Nausea and Vomiting: No Hx Cancer Surgery: No Hx Thoracic Surgery: No Hx Orthopedic: Yes (RT TSA) Hx Urinary Tract Surgery: No Family History Polyp Social History Smoking Status: Current Every Day Smoker Hx Substance Use: Yes (OCCASIONAL-"IT'S BEEN A GOOD COUPLE YEARS AGO" METH, COKE, WEED) Hx Alcohol Use: Yes (OCCASIONAL) Allergies Coded Allergies: Adhesives (Verified Allergy, Unknown, MCKENNA AND "EATS" SKIN, 11/30/16) Trazodone (Unverified Adverse Reaction, Severe, EXCESSIVE URINATION, ) Current Medications Reported Home Medications Medications Dose Route/Sig Max Daily Dose Days Date Category Ventolin Hfa (Albuterol) 200 Puffs/60630 Mcg Aers 2-4 Puffs INH Q6H PRN 11/15/16 Reported Vitamin C Plus [place] 500 mg (Ascorbic Acid) 1 Chw Chw 1,000 Mg PO HS 11/15/16 Reported Remeron Soltab (Mirtazapine) 15 Mg Soltab 0.5 Tab PO HS 11/15/16 Reported Buspirone Hcl 7.5 Mg Tab 1 Tab PO BID 11/15/16 Reported Celexa (Citalopram Hydrobromide) 20 Mg Tab 20 Mg PO QAM 11/15/16 Reported Flonase Allergy Relief (Fluticasone Propionate (Nasal)) 50 Mcg/Act Spr 2 Sprays BE QAM 11/15/16 Reported Advair Diskus 100/50 60 Dose (Fluticasone Prop/Salmeterol) 1 Ea Aerp 1 Puff INH BID 11/15/16 Reported Incruse Ellipta (Umeclidinium [place]) 62.5 Mcg/Inh Inh 1 Puff INH AFTERNOON 11/15/16 Reported Claritin (Loratadine) 10 Mg Tab 10 Mg PO QAM 04/16/16 Reported Prilosec (Omeprazole) 20 Mg Capcr 20 Mg PO QAM 04/16/16 Reported Vital Signs Weight (Kilograms): 113.64 Height (Feet): 5 Height (Inches): 3 Date Time Temp Pulse Resp B/P (MAP) Pulse Ox O2 Delivery O2 Flow Rate FiO2 11/30/16 12:54 37.4 89 24 128/63 (84) 93 Room Air Physical Exam AAOx3 Nls1s2 Lungs CTA Abd soft , obese nt/nd = Bs - CCE Assessment and Plan colonoscopy
--- NOTE | 2016-11-30 13:36 | Discharge Instructions ---
Endoscopy Patient Instructions Date / Procedure(s) Performed Nov 30, 2016. Colonoscopy Allergy Information Coded Allergies: Adhesives (Verified Allergy, Unknown, MCKENNA AND "EATS" SKIN, 11/30/16) Trazodone (Unverified Adverse Reaction, Severe, EXCESSIVE URINATION, ) Discharge Date / Findings Nov 30, 2016. polyps- removed Medication Instructions Restart Stopped Medication(s): Reported Home Medications Medications Dose Route/Sig Max Daily Dose Days Date Category Ventolin Hfa (Albuterol) 200 Puffs/97069 Mcg Aers 2-4 Puffs INH Q6H PRN 11/15/16 Reported Vitamin C Plus [place] 500 mg (Ascorbic Acid) 1 Chw Chw 1,000 Mg PO HS 11/15/16 Reported Remeron Soltab (Mirtazapine) 15 Mg Soltab 0.5 Tab PO HS 11/15/16 Reported Buspirone Hcl 7.5 Mg Tab 1 Tab PO BID 11/15/16 Reported Celexa (Citalopram Hydrobromide) 20 Mg Tab 20 Mg PO QAM 11/15/16 Reported Flonase Allergy Relief (Fluticasone Propionate (Nasal)) 50 Mcg/Act Spr 2 Sprays BE QAM 11/15/16 Reported Advair Diskus 100/50 60 Dose (Fluticasone Prop/Salmeterol) 1 Ea Aerp 1 Puff INH BID 11/15/16 Reported Incruse Ellipta (Umeclidinium [place]) 62.5 Mcg/Inh Inh 1 Puff INH AFTERNOON 11/15/16 Reported Claritin (Loratadine) 10 Mg Tab 10 Mg PO QAM 04/16/16 Reported Prilosec (Omeprazole) 20 Mg Capcr 20 Mg PO QAM 04/16/16 Reported Reported Home Medications Medications Dose Route/Sig Max Daily Dose Days Date Category Ventolin Hfa (Albuterol) 200 Puffs/48584 Mcg Aers 2-4 Puffs INH Q6H PRN 11/15/16 Reported Vitamin C Plus [place] 500 mg (Ascorbic Acid) 1 Chw Chw 1,000 Mg PO HS 11/15/16 Reported Remeron Soltab (Mirtazapine) 15 Mg Soltab 0.5 Tab PO HS 11/15/16 Reported Buspirone Hcl 7.5 Mg Tab 1 Tab PO BID 11/15/16 Reported Celexa (Citalopram Hydrobromide) 20 Mg Tab 20 Mg PO QAM 11/15/16 Reported Flonase Allergy Relief (Fluticasone Propionate (Nasal)) 50 Mcg/Act Spr 2 Sprays BE QAM 11/15/16 Reported Advair Diskus 100/50 60 Dose (Fluticasone Prop/Salmeterol) 1 Ea Aerp 1 Puff INH BID 11/15/16 Reported Incruse Ellipta (Umeclidinium [place]) 62.5 Mcg/Inh Inh 1 Puff INH AFTERNOON 11/15/16 Reported Claritin (Loratadine) 10 Mg Tab 10 Mg PO QAM 04/16/16 Reported Prilosec (Omeprazole) 20 Mg Capcr 20 Mg PO QAM 04/16/16 Reported Provider Instructions Activity Restrictions - No exercising or heavy lifting for 24 hours. - Do not drink alcohol the day of the procedure. - Do not drive a car or operate machinery until the day after the procedure. - Do not make any important decisions or sign important papers in 24 hours after the procedure. Following Day: - Return to full activity which may include returning to work/school. Diet Start your diet with liquids and light foods (jello, soup, juice, toast). Then eat your usual diet if not nauseated. Treatment For Common After Affects For mild abdominal pain, bloating, or excessive gas: - Rest - Eat lightly - Lie on right side Follow-Up Information Follow-up with Tashi as scheduled Anesthesia Information What You Should Know You have had a procedure that required some medicine to reduce anxiety and discomfort. This treatment is called moderate sedation. After receiving the treatment, you may be sleepy, but you will be able to breathe on your own. The effects of the treatment may last for several hours. Follow these instructions along with Activity/Diet recommendations noted above: * Do NOT do anything where dizziness or clumsiness would be dangerous. * Rest quietly at home today, then you can be up and about tomorrow. * Have a responsible person stay with you the rest of today. * You may have had an I.V. today. If so, you may take the dressing off later today. Recommendations Call your doctor if: * Trouble breathing * Continuous vomiting for more than 24 hours * Temperature above 101 degrees * Severe abdominal pain or bloating * Pain not relieved by pain medicine ordered * There is increased drainage or redness from any incision * A large amount of rectal bleeding greater than 2-3 tablespoons. (If you had a polyp/s removed or have hemorrhoids, a small amount of blood - from the rectum is to be expected.) * You have any unanswered questions or concerns. IN THE EVENT OF A SERIOUS EMERGENCY, GO TO THE NEAREST EMERGENCY ROOM Your discharge instructions were prepared by provider Francisco Sifuentes. Patient Instructions Signature Page Rahul Oneil Patient (or Guardian) Signature/Date: I have read and understand the instructions given to me by my caregivers. Caregiver/RN/Doctor Signature/Date: The above-named patient and/or guardian has received patient instructions on this date. + Original Patient Signature Page (only) stays with chart. Please make copy for patient.
--- NOTE | 2016-11-30 13:45 | GI REPORT ---
Procedure Date: 11/30/2016 1:10 PM Procedure: Colonoscopy Indications: Hematochezia, family hx of colon polyps Medicines: Propofol per Anesthesia Complications: No immediate complications. Estimated blood loss: Minimal. Estimated Blood Loss: Estimated blood loss was minimal. Estimated blood loss was minimal. Procedure: Pre-Anesthesia Assessment: - Prior to the procedure, a History and Physical was performed, and patient medications and allergies were reviewed. The patient's tolerance of previous anesthesia was also reviewed. The risks and benefits of the procedure and the sedation options and risks were discussed with the patient. All questions were answered, and informed consent was obtained. Prior Anticoagulants: The patient has taken no previous anticoagulant or antiplatelet agents. ASA Grade Assessment: III - A patient with severe systemic disease. After reviewing the risks and benefits, the patient was deemed in satisfactory condition to undergo the procedure. After I obtained informed consent, the scope was passed under direct vision. Throughout the procedure, the patient's blood pressure, pulse, and oxygen saturations were monitored continuously. The On-site loaner was introduced through the anus and advanced to the terminal ileum, with identification of the appendiceal orifice and IC valve. The colonoscopy was performed without difficulty. The patient tolerated the procedure well. The quality of the bowel preparation was good. Findings: The perianal and digital rectal examinations were normal. Pertinent negatives include normal sphincter tone, no palpable rectal lesions and no anal lesion or abnormality was detected. A 3 mm polyp was found at 60 cm proximal to the anus. The polyp was sessile. The polyp was removed with a cold biopsy forceps. Resection and retrieval were complete. Estimated blood loss was minimal. Verification of patient identification for the specimen was done by the physician and hospital pharmacy technician using the patient's name and medical record number. A 7 mm polyp was found at 50 cm proximal to the anus. The polyp was sessile. The polyp was removed with a cold snare. Resection and retrieval were complete. Estimated blood loss was minimal. Verification of patient identification for the specimen was done by the physician and hospital pharmacy technician using the patient's name and medical record number. Four sessile polyps were found at 20 cm proximal to the anus. The polyps were 2 to 4 mm in size. These polyps were removed with a cold biopsy forceps. Resection and retrieval were complete. Estimated blood loss was minimal. Verification of patient identification for the specimen was done by the physician and hospital pharmacy technician using the patient's name and medical record number. The retroflexed view of the distal rectum and anal verge was normal and showed no anal or rectal abnormalities. The terminal ileum appeared normal. Impression: - One 3 mm polyp at 60 cm proximal to the anus, removed with a cold biopsy forceps. Resected and retrieved. - One 7 mm polyp at 50 cm proximal to the anus, removed with a cold snare. Resected and retrieved. - Four 2 to 4 mm polyps at 20 cm proximal to the anus, removed with a cold biopsy forceps. Resected and retrieved. - The distal rectum and anal verge are normal on retroflexion view. - The examined portion of the ileum was normal. Recommendation: - Discharge patient to home (ambulatory). - Advance diet as tolerated. - Continue present medications. - Await pathology results. - Repeat colonoscopy for surveillance based on pathology results. - Return to referring physician as previously scheduled. MD Francisco Morales MD 11/30/2016 1:44:07 PM This report has been signed electronically. Note Initiated On: 11/30/2016 1:10 PM I attest to the content of the Intraoperative Record and orders documented therein, exceptions below
--- NOTE | 2016-11-30 14:08 | Anesthesiology Progress Note ---
Anesthesia Post Op Note Date & Time Nov 30, 2016 at 14:07 Vital Signs Pain Intensity: 0 Vital Signs Past 12 Hours Date Time Temp Pulse Resp B/P (MAP) Pulse Ox O2 Delivery O2 Flow Rate FiO2 11/30/16 14:01 85 22 101/56 (71) 97 Room Air 11/30/16 13:47 78 24 93/58 (70) 100 Room Air 11/30/16 12:54 37.4 89 24 128/63 (84) 93 Room Air Notes Mental Status: alert / awake / arousable, participated in evaluation Pt Amnestic to Procedure: Yes Nausea / Vomiting: adequately controlled Pain: adequately controlled Airway Patency, RR, SpO2: stable & adequate BP & HR: stable & adequate Hydration State: stable & adequate Anesthetic Complications: no major complications apparent
[2016-11-30 14:12] VITALS: BP 102/69; PULSE 81; O2SAT 96
== END | disposition home or self-care (01) ==
LOC: C.GI 12:08
PROVIDERS: ATTEND Internal Medicine Gastroenterology
DX: K62.5 Hemorrhage of anus and rectum (principal); K92.1 Melena; Z83.71 Family history of colonic polyps; K62.0 Anal polyp; Z90.711 Acquired absence of uterus with remaining cervical stump; F17.200 Nicotine dependence, unspecified, uncomplicated; J44.9 Chronic obstructive pulmonary disease, unspecified; K21.9 Gastro-esophageal reflux disease without esophagitis; F41.9 Anxiety disorder, unspecified; F32.9 Major depressive disorder, single episode, unspecified; E66.01 Morbid (severe) obesity due to excess calories; G47.30 Sleep apnea, unspecified

== ENCOUNTER → 2016-12-16 | Outpatient (CLI) | payer OTHER ==
[~2016-12-16] MED LIST changes: -LIDOCAINE HCL 2% 2 ML VIAL (20MG/ML) ONE; -PROPOFOL IV EMULSION 10 MG/ML 20 ML VIAL IV ONE; -SODIUM CHLORIDE 0.9% 500ML 500 ML IV ONE
--- NOTE | 2016-12-16 12:34 | DIAGNOSTIC IMAGING REPORT ---
ABDOMEN LIMITED (US) HISTORY: Pain. Edema. LOWER EXTREMITY EDEMA, BILATERAL. COMPARISON: CT abdomen and pelvis dated 11/15/2016 FINDINGS: Pancreas: The pancreas demonstrates a normal echotexture. Liver: Multiple small cysts. This calcified the CT finding. Mild fatty infiltration. Gallbladder: No gallbladder wall thickening. No gallstones. CBD: 5 mm Right kidney: No hydronephrosis. IMPRESSION: 1. Multiple small hepatic cysts accounting for the previously described CT finding. 2. Fatty infiltration of liver. 3. Otherwise negative study. The above report was generated using voice recognition software. It may contain grammatical, syntax or spelling errors. Electronically signed by: Adithya Walsh M.D. 12/16/2016 12:32 PM Dictated Date/Time: 12/16/2016 12:30 PM
== END | disposition home or self-care (01) ==
LOC: C.ULTR 11:45
PROVIDERS: ATTEND Physician Assistant
DX: R60.0 Localized edema (principal); K75.89 Other specified inflammatory liver diseases; K76.0 Fatty (change of) liver, not elsewhere classified; Z12.31 Encounter for screening mammogram for malignant neoplasm of breast

== ENCOUNTER → 2016-12-16 | Outpatient (CLI) | payer OTHER ==
--- NOTE | 2016-12-28 16:00 | MAMMOGRAPHY REPORT ---
BILATERAL DIGITAL SCREENING MAMMOGRAM TOMOSYNTHESIS WITH CAD: 12/16/2016 CLINICAL HISTORY: Routine screening. Patient has no complaints. TECHNIQUE: Breast tomosynthesis in addition to standard 2D mammography was performed. Current study was also evaluated with a Computer Aided Detection (CAD) system. COMPARISON: Prior mammogram from [facility] dated 11/17/2010. BREAST COMPOSITION: The tissue of both breasts is almost entirely fatty. FINDINGS: No new suspicious mass, architectural distortion or cluster of microcalcifications is seen . IMPRESSION: ACR BI-RADS CATEGORY 1: NEGATIVE There is no mammographic evidence of malignancy. A 1 year screening mammogram is recommended. The pa tient will receive written notification of the results. Approximately 10% of breast cancers are not detected with mammography. A negative mammographic report should not delay biopsy if a clinically suggestive mass is present. Rachel Salazar M.D. ay/:12/27/2016 17:10:15 Wrinkle Chaser: Jing MELENDEZ)(Olinda)(WAYNE), [facility] letter sent: Normal 1/2 BI-RADS Code: ACR BI-RADS Category 1: Negative
== END | disposition home or self-care (01) ==
LOC: C.MAMM 13:22
PROVIDERS: ATTEND Physician Assistant
DX: Z12.31 Encounter for screening mammogram for malignant neoplasm of breast (principal)

== ENCOUNTER 2017-01-01 23:55 | Emergency (ER) | payer OTHER ==
[~2017-01-01] VITALS: Ht 160 cm; Wt 118.0 kg
[~2017-01-01 23:55] MED LIST changes: -OXYC1TAB3 PO
[2017-01-02 00:05] VITALS: TEMP 37; Ht 160 cm; Wt 118.0 kg
[2017-01-02] MEDS ORDERED: OXYCODONE HCL IR 5 MG TAB (IMMEDIATE RELEASE) PO STA (00:24)
--- NOTE | 2017-01-02 00:35 | EMERGENCY ROOM VISIT NOTE ---
History First contact with patient: 00:11 Chief Complaint: ANKLE PAIN Stated Complaint: SWOLLEN LEFT ANKLE AREA,SEVERE PAIN AT HEEL History of Present Illness The patient is a 61 year old female who presents to the Emergency Room with complaints of left foot pain. The patient states that she was at a tractor pool yesterday and when coming down the bleachers, she believes that she stepped down too hard. She developed pain in the heel last night and difficulty sleeping due to the pain. She has taken Excedrin without relief. She iced the heel with some relief. She states the pain as a burning pain, similar to a bruise. She denies pain in the calf or upper leg. She rates her current discomfort a 10/10. She denies any numbness or weakness. Review of Systems A complete 10 point review of systems was reviewed with the patient with pertinent positives and negatives as per history of present illness. All else were negative. 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 Family History Cancer Gallbladder disease Heart disease Hypertension Kidney disease Kidney stones Social History Smoking Status: Current Every Day Smoker Alcohol Use: none Marital Status: single Housing Status: lives with family Occupation Status: disabled Current/Historical Medications Scheduled Ascorbic Acid (Vitamin C Plus [place] 500 mg), 1,000 MG PO HS Buspirone Hcl (Buspirone Hcl), 1 TAB PO BID Citalopram Hydrobromide (Celexa), 20 MG PO QAM Fluticasone Prop/Salmeterol (Advair Diskus 100/50 60 Dose), 1 PUFF INH BID Fluticasone Propionate (Nasal) (Flonase Allergy Relief), 2 SPRAYS BE QAM Loratadine (Claritin), 10 MG PO QAM Mirtazapine Soltab (Remeron Soltab), 0.5 TAB PO HS Omeprazole (Prilosec), 20 MG PO QAM Umeclidinium [place] (Incruse Ellipta), 1 PUFF INH AFTERNOON Scheduled PRN Albuterol Hfa (Ventolin Hfa), 2-4 PUFFS INH Q6H PRN for SOB/Wheezing Oxycodone Ir (Roxicodone Ir), 1-2 TAB PO Q4H PRN for Pain Physical Exam Vital Signs Date Time Temp Pulse Resp B/P (MAP) Pulse Ox O2 Delivery O2 Flow Rate FiO2 01/02/17 01:10 85 24 123/95 92 01/02/17 00:05 37.0 93 22 130/83 93 Room Air Physical Exam VITALS: Vitals are noted on the nurse's note and reviewed by myself. Vital signs stable. GENERAL: This is a 61-year-old female, in no acute distress, nondiaphoretic, well-developed well-nourished. HEART: Regular rate and rhythm without murmurs gallops or rubs. LUNGS: Clear to auscultation bilaterally without wheezes, rales or rhonchi. MUSCULOSKELETAL: There is tenderness to palpation of the left heel. No tenderness of the ankle or calf. No tenderness of the rest of the foot. 1+ pitting edema in bilateral lower extremities. No erythema or warmth. NEURO: Patient was alert and oriented to person place and time. Normal sensation. Medical Decision & Procedures ER Provider Diagnostic Interpretation: LEFT FOOT X-RAY: Small bony heel spur. No acute fractures noted. Medications Administered Medications (Trade) Dose Ordered Sig/Patti Route Start Time Stop Time Status Last Admin Dose Admin Oxycodone HCl (Roxicodone Immediate Rel Tab) 5 mg NOW STAT PO 01/02/17 00:24 01/02/17 00:26 DC 01/02/17 00:35 5 MG Medical Decision Differential diagnosis includes fracture, contusion, sprain, DVT, cellulitis, among others. The patient is a 61-year-old female who presents today complaining of left heel pain. There is no specific injury to the heel, but the patient did state that she felt she landed on it while walking down bleachers. There is no erythema or warmth to suggest infection. There is no calf tenderness or anything to suggest DVT. She has focal tenderness over the heel. X-ray of the foot was obtained and read by myself and my attending and does not show any acute findings. The patient was placed in a postoperative shoe and given medication for pain control. She was instructed to follow-up with her PCP for further evaluation and referral as needed. She verbalized understanding of my assessment and treatment plan and was discharged home in good condition. The patient was independently evaluated by Dr. Herrera, ED attending physician, who agreed with my assessment and treatment plan. [facility] Drug Monitoring Program Search Results: patient reviewed within database, no issues identified Medication Reconcilliation Current Medication List: was personally reviewed by me Blood Pressure Screening Patient's blood pressure: Normal blood pressure Impression Primary Impression: Left foot pain Departure Information Dispostion Home / Self-Care Condition GOOD Prescriptions Oxycodone Ir (Roxicodone Ir) 5 Mg Tab 1-2 TAB PO Q4H Y for Pain, #10 TAB For Initial Treatment Prov: Rosa Murray PA-C 01/02/17 Referrals Kelsea Akins PA-C (PCP) Patient Instructions My [facility] Additional Instructions You have been treated in the Emergency Department for foot pain. You have received pain medicine in the emergency department which impairs your ability to operate a vehicle. It is illegal for you to drive after receiving these medicines. You have been prescribed Oxy IR to be used for pain control. This is a narcotic medication. You cannot drive or consume alcohol while on this medicine. This medicine should only be used for pain that cannot be controlled with over-the- counter pain medicines. For pain control, you can use the following [id number] medicines (if >12 yo): - Regular strength (325mg/tab) Tylenol (acetaminophen) 2 tabs every 4-6 hours as needed. Do not exceed 12 tablets in a 24 hour period. Avoid taking more than 4 grams (4000 mg) of Tylenol per day. This includes any other sources of acetaminophen you may take on a regular basis. - Regular strength (200 mg/tab) Advil (ibuprofen) 1-2 tabs every 4-6 hours as needed. Do not exceed a dose of 3200 mg per day. If this is a recent injury (<24 hrs), ice can be applied to the area of pain for the first 3 days to help decrease pain and inflammation. Wear the postoperative shoe for the next week or as needed for pain. Follow-up with your primary care provider this week for further evaluation/ treatment. Return to the Emergency Department if your current symptoms worsen despite treatment course outlined above, or if you develop any of the following symptoms : intractable pain despite aforementioned treatment course or new onset of numbness or tingling of the foot.
[2017-01-02] MEDS ORDERED: OXYC1TAB3 PO (00:52)
--- NOTE | 2017-01-02 00:56 | EMERGENCY ROOM VISIT NOTE ---
ED Visit Note First contact with patient: 00:11 I saw this patient in conjunction with Rosa Murray PA-C. I agree with her decision making and treatment plan.
[2017-01-02 01:10] VITALS: BP 123/95; PULSE 85; O2SAT 92
--- NOTE | 2017-01-02 06:40 | DIAGNOSTIC IMAGING REPORT ---
LEFT FOOT MIN 3 VIEWS ROUTINE CLINICAL HISTORY: left foot/heel pain COMPARISON: None. DISCUSSION: No acute fractures or dislocations are visualized. There is a tiny plantar calcaneal spur. No erosive or destructive changes are visualized . There are minor degenerative changes present. IMPRESSION: 1. No evidence of fracture 2. No destructive lesions are visualized Electronically signed by: Kenroy Vasquez M.D. 01/02/2017 6:39 AM Dictated Date/Time: 01/02/2017 6:38 AM
== END 2017-01-02 01:10 | disposition home or self-care (01) ==
LOC: C.EDB 23:56
DX: M79.672 Pain in left foot (principal); J45.909 Unspecified asthma, uncomplicated; J43.9 Emphysema, unspecified; F17.200 Nicotine dependence, unspecified, uncomplicated; Z90.710 Acquired absence of both cervix and uterus; Z96.611 Presence of right artificial shoulder joint

== ENCOUNTER → 2017-05-09 | Outpatient (CLI) | payer OTHER ==
[~2017-05-09] VITALS: Ht 160 cm; Wt 126.2 kg
[~2017-05-09] MED LIST changes: +OXYC-90 PO
[2017-05-09 14:25] VITALS: BP 131/72; PULSE 112; Ht 160 cm; Wt 126.2 kg
== END | disposition home or self-care (01) ==
LOC: C.NEUR 14:04
PROVIDERS: ATTEND Physician Assistant Medical
DX: G47.33 Obstructive sleep apnea (adult) (pediatric) (principal); Z99.89 Dependence on other enabling machines and devices; G47.34 Idiopathic sleep related nonobstructive alveolar hypoventilation; E66.9 Obesity, unspecified; F41.9 Anxiety disorder, unspecified; F32.9 Major depressive disorder, single episode, unspecified

== ENCOUNTER → 2017-06-13 | Outpatient (CLI) | payer OTHER ==
[~2017-06-13] MED LIST changes: -OXYC-90 PO; +OXYC1TAB3 PO
--- NOTE | 2017-06-13 14:36 | DIAGNOSTIC IMAGING REPORT ---
CT LUNG SCREENING, LOW DOSE WITH COMPUTER-AIDED DETECTION (CAD) CLINICAL HISTORY: 61 years-old Female presenting with lung screening, history of nicotine dependence, smoking. CT DOSE (mGy.cm): The estimated cumulative dose is 82.18 mGy.cm. TECHNIQUE: Low-dose helical CT was acquired without intravenous contrast from lung apices to bases and reconstructed at 2.5 mm every 2 mm. Computer-Aided detection (CAD) was utilized for this study. A dose lowering technique was used consistent with the principles of ALARA (as low as reasonably achievable). COMPARISON: None. FINDINGS: Fringe Maker topogram: Right shoulder arthroplasty. On soft tissue windows, thyroid obscured due to extensive streak artifact arising from the shoulder arthroplasty. Calcified mediastinal lymph nodes noted in the subcarinal region. Calcified left hilar lymph nodes. Evaluation of the sonia limited without intravenous contrast. Atherosclerosis of the aorta. Normal heart size. Minimal coronary artery calcification. No pericardial or pleural effusion. Hepatic steatosis. On lung windows, irregular centrally 8.5 mm solid peripherally groundglass nodule in the superior lingula (series 4 image 111). Few adjacent tree-in-bud opacities noted more anteriorly (series 4 images 22, 124, 132) few scattered calcified granulomata. Airways patent. On bone windows, right shoulder arthroplasty. CAD FINDINGS: Overall Lung RADS Category: 4A Lung RADS Management Recommendation: Return for CT high risk diagnostic chest. Lung RADS Follow Up Date: 2017-09-10 Lung RADS Nodule ID: 1 IMPRESSION: 1. Irregular, partially solid partially subsolid 8.5 mm nodule in the superior lingula. Adjacent tree-in-bud opacities. Malignancy is difficult to exclude, although the presence of adjacent tree-in-bud opacities could suggest an infectious or inflammatory etiology. Follow-up in [address] high risk diagnostic chest as above. Electronically signed by: Ty Rader M.D. 06/13/2017 2:34 PM Dictated Date/Time: 06/13/2017 2:19 PM
== END | disposition home or self-care (01) ==
LOC: C.CTS 14:06
PROVIDERS: ATTEND Physician Assistant
DX: Z12.2 Encounter for screening for malignant neoplasm of respiratory organs (principal); Z87.891 Personal history of nicotine dependence; R91.8 Other nonspecific abnormal finding of lung field

== ENCOUNTER → 2017-07-13 | Outpatient (CLI) | payer OTHER ==
[~2017-07-13] MED LIST changes: -OXYC1TAB3 PO
== END | disposition home or self-care (01) ==
LOC: C.MAMM 09:29
PROVIDERS: ATTEND Physician Assistant
DX: R89.1 Abnormal level of hormones in specimens from other organs, systems and tissues (principal); M81.0 Age-related osteoporosis without current pathological fracture; M85.89 Other specified disorders of bone density and structure, multiple sites

== ENCOUNTER → 2017-09-13 | Outpatient (CLI) | payer OTHER ==
--- NOTE | 2017-09-13 11:17 | DIAGNOSTIC IMAGING REPORT ---
ADDENDUM Study is categorized as a lung RADS 1. The patient may return for annual screening. Electronically signed by: Amandeep Pederson M.D. 09/13/2017 3:00 PM Dictated Date/Time: 09/13/2017 2:59 PM ORIGINAL REPORT (CHEST) THORAX WITHOUT CT DOSE: 662.99 mGycm CLINICAL HISTORY: 62 years-old Female with SOLITARY NODULE OF LUNG. Follow-up study in a patient with history of pulmonary nodules TECHNIQUE: Multiaxial CT images of the chest were performed without contrast. A dose lowering technique was utilized adhering to the principles of ALARA. COMPARISON: Low-dose lung screening study 06/23/2017. FINDINGS: The thyroid is homogeneous. Calcified mediastinal and hilar lymph nodes are compatible with prior granulomatous disease. Heart is normal in size without pericardial effusion. Mild atherosclerotic plaquing of the aorta. No aneurysm. Calcified pruitt limit the the lungs bilaterally. Mild centrilobular emphysematous changes within an upper lung zone predominant distribution. There is no pneumothorax or pleural effusion. There is resolution of the previously described tree-in-bud nodules within the lingula. No new or suspicious pulmonary nodules are identified. The central airways are patent. Hepatic steatosis with hepatomegaly. Small sliding-type hiatal hernia. No acute process of the imaged upper abdomen. Soft tissues are unremarkable. Orthopedic hardware about the right shoulder is partially imaged. Multilevel degenerative changes about the thoracic spine. IMPRESSION: 1. No acute intrathoracic abnormality identified. 2. Resolution of the previously described solid and tree-in-bud nodules within the lingula suggesting resolved infectious or inflammatory pneumonitis. No suspicious pulmonary nodules are identified. 3. Prior granulomatous disease. 4. Hepatic steatosis. 5. Small sliding-type hiatal hernia. Electronically signed by: Amandeep Pederson M.D. 09/13/2017 11:16 AM Dictated Date/Time: 09/13/2017 11:09 AM
== END | disposition home or self-care (01) ==
LOC: C.CTS 10:54
PROVIDERS: ATTEND Physician Assistant
DX: R91.1 Solitary pulmonary nodule (principal); R91.8 Other nonspecific abnormal finding of lung field; K76.0 Fatty (change of) liver, not elsewhere classified; K44.9 Diaphragmatic hernia without obstruction or gangrene

== ENCOUNTER → 2017-11-27 | Outpatient (CLI) | payer OTHER ==
--- NOTE | 2017-11-27 16:24 | DIAGNOSTIC IMAGING REPORT ---
L FOOT MIN 3 VIEWS ROUTINE CLINICAL HISTORY: FOOT PAIN, LEFT M79.672FOOT PAIN, LEFT M79.672 COMPARISON: None. DISCUSSION: The bones and joint spaces appear intact. There is no evidence of fracture, dislocation or bony disease. There is no evidence for soft tissue swelling. IMPRESSION: Negative study. The above report was generated using voice recognition software. It may contain grammatical, syntax or spelling errors. Electronically signed by: Adithya Walsh M.D. 11/27/2017 4:22 PM Dictated Date/Time: 11/27/2017 4:22 PM
== END | disposition home or self-care (01) ==
LOC: C.RAD 14:49
PROVIDERS: ATTEND Physician Assistant
DX: M79.672 Pain in left foot (principal)

== ENCOUNTER → 2017-12-27 | Outpatient (CLI) | payer OTHER ==
--- NOTE | 2017-12-27 13:43 | DIAGNOSTIC IMAGING REPORT ---
LUMBAR SPINE W/O CONTRAST CLINICAL HISTORY: 62 years-old Female with LUMBAR RADICULOPATHY. Chronic low back pain with radicular symptoms of the bilateral lower extremities. COMPARISON: CT abdomen and pelvis 11/15/2016. TECHNIQUE: Multiplanar, multi sequence MRI of the lumbar spine was performed without intravenous contrast. FINDINGS: No aortic aneurysm or adenopathy. No acute intra-abdominal, intrapelvic or paraspinal abnormality identified. Mild dextroscoliosis about the mid lumbar spine. Conus medullaris terminates at L1. Signal within the imaged thoracic spinal cord appears normal. Cauda equina are within normal limits. Epidural lipomatosis is noted at L5-S1. Multilevel intervertebral disc space narrowing with annular disc bulging, spondylitic spurring and facet arthropathy as described below. No acute fracture, subluxation or focal bone marrow edema. T12-L1: No central canal or neural foraminal stenosis. L1-L2: Mild spondylitic spurring and facet arthrosis. No central canal or foraminal narrowing. L2-L3: Mild intervertebral disc space narrowing with spondylitic spurring, severe right and moderate left facet arthrosis. Findings cause moderate central canal and mild right foraminal narrowing. The left foramen is patent. L3-L4: Mild intervertebral disc space narrowing with spondylitic spurring and circumferential annular disc bulge with moderate facet arthrosis and ligamentum flavum thickening. Findings cause moderate central canal, mild left and [id number]-iw-[id number] right foraminal narrowing. L4-L5: There is moderate intervertebral disc space narrowing with spondylitic spurring and circumferential annular disc bulge with moderate facet arthrosis and ligamentum flavum thickening. Superimposed left foraminal disc protrusion measuring approximately 8 mm transversely is noted resulting in severe left foraminal stenosis. Central canal is patent. There is mild right foraminal stenosis. L5-S1: Mild intervertebral disc space narrowing with spondylitic spurring and annular disc bulge favoring the right foramen/extraforaminal distribution. Epidural lipomatosis is also noted at this level with ligamentum flavum thickening. Findings cause moderate central canal, [id number] left and [id number] right foraminal narrowing. IMPRESSION: 1. No acute fracture or subluxation. 2. Epidural lipomatosis at L5-S1 contributes to moderate central canal narrowing. 3. At L4-L5, circumferential annular disc bulge with spondylitic spurring, facet arthrosis and ligamentum flavum thickening is noted in conjunction with a superimposed left foraminal disc protrusion which results in severe left foraminal stenosis. 4. Moderate central canal stenosis at L2-L3 and L3-L4. The above report was generated using voice recognition software. It may contain grammatical, syntax or spelling errors. Dictated: 12/27/2017 12:55 PM Transcribed: 12/27/2017 1:42 PM [email or web address] Electronically signed by: Amandeep Pederson M.D. 12/27/2017 2:03 PM Dictated Date/Time: 12/27/2017 12:55 PM
== END | disposition home or self-care (01) ==
LOC: C.MRI 10:43
PROVIDERS: ATTEND Physician Assistant
DX: M51.16 Intervertebral disc disorders with radiculopathy, lumbar region (principal); M99.73 Connective tissue and disc stenosis of intervertebral foramina of lumbar region; E88.2 Lipomatosis, not elsewhere classified